=== PATIENT | female | born 1945 | race Caucasian/White ===

== ENCOUNTER 2019-02-25 20:56 | Inpatient (IN) | payer MEDICARE ==
[~2019-02-25] VITALS: Ht 165.1 cm; Wt 94.4 kg
[~2019-02-25 20:56] MED LIST: NKHM
[2019-02-25 20:57] VITALS: BP 147/81
[2019-02-25 21:54] LABS: BASO # 0.1 10*3/uL (0.0-0.1); BASO % 0.3 % (0.0-1.0); EOS # 0.1 10*3/uL (0.0-0.4); EOS % 0.3 % (1.0-4.0); HEMATOCRIT 41.2 % (37.0-47.0); HEMOGLOBIN 11.9 g/dl (12.0-16.0); LYMPH # 1.1 10*3/uL (1.3-4.4); LYMPH % 7.3 % (27.0-41.0); MEAN CELL VOLUME 77.4 fl (81.0-99.0); MEAN CORPUSCULAR HGB 22.4 pg (27.0-31.0); MEAN CORPUSCULAR HGB CONC 28.9 g/dl (33.0-37.0); MEAN PLATELET VOLUME 12.3 fl (9.6-12.3); MONO # 0.9 10*3/uL (0.1-1.0); MONO % 6.1 % (3.0-9.0); NEUT # 13.1 10*3/uL (2.3-7.9); NEUT % 85.6 % (47.0-73.0); PLATELET COUNT AUTOMATED 293 10*3/uL (130-400); RED BLOOD COUNT 5.32 10*6/uL (4.10-5.10); RED CELL DISTRI WIDTH 18.9 % (0-14.5); WHITE BLOOD COUNT 15.3 10*3/uL (4.8-10.8)
[2019-02-25 22:09] LABS: ALBUMIN 3.2 gm/dl (3.1-4.5); ALKALINE PHOSPHATASE 103 U/L (45-117); BUN 21 mg/dl (7-24); CHLORIDE 114 mmol/L (98-107); CREATININE 1.05 mg/dL (0.55-1.02); LIPASE 133 U/L (73-393); POTASSIUM 3.8 mmol/L (3.5-5.1); SGOT/AST 52 IU/L (3-35); SGPT/ALT 74 U/L (12-78); SODIUM 144 mmol/L (136-145); TOTAL PROTEIN 7.9 gm/dL (6.4-8.2)
--- NOTE | 2019-02-26 04:13 | NUR ---
RESTING QUIETLY NO SIGN OF DISTRESS. RESP EASY AND NONLABORE DON ROOM AIR. CALL LIGHT IN REACH.
[2019-02-26 05:34] LABS: BASO % 0.2 % (0.0-1.0); HEMATOCRIT 40.8 % (37.0-47.0); HEMOGLOBIN 11.7 g/dl (12.0-16.0); LYMPH # 1.1 10*3/uL (1.3-4.4); LYMPH % 6.4 % (27.0-41.0); MEAN CELL VOLUME 77.7 fl (81.0-99.0); MEAN CORPUSCULAR HGB 22.3 pg (27.0-31.0); MEAN CORPUSCULAR HGB CONC 28.7 g/dl (33.0-37.0); MEAN PLATELET VOLUME 11.8 fl (9.6-12.3); MONO # 1.5 10*3/uL (0.1-1.0); MONO % 8.6 % (3.0-9.0); NEUT # 14.3 10*3/uL (2.3-7.9); NEUT % 84.3 % (47.0-73.0); PLATELET COUNT AUTOMATED 261 10*3/uL (130-400); RED BLOOD COUNT 5.25 10*6/uL (4.10-5.10); RED CELL DISTRI WIDTH 18.8 % (0-14.5); WHITE BLOOD COUNT 16.9 10*3/uL (4.8-10.8)
[2019-02-26 05:50] LABS: ALBUMIN 3.1 gm/dl (3.1-4.5); CREATININE 1.4 mg/dL (0.55-1.02); PHOSPHOROUS 4.8 mg/dL (2.5-4.9); POTASSIUM 4.4 mmol/L (3.5-5.1); TOTAL PROTEIN 7.5 gm/dL (6.4-8.2)
[2019-02-26 05:55] LABS: THYROID STIM HORMONE (HS) 1.02 uIU/ml (0.358-4.75)
--- NOTE | 2019-02-26 06:25 | NUR ---
DR HUSSEIN. AWARE OF CONSULT. CALL HIM WITH ULTRA SOUND RESULTS.
--- NOTE | 2019-02-26 06:35 | NUR ---
PER DR CHAPMAN PT TO BE NPO.
--- NOTE | 2019-02-26 07:11 | NUR ---
REPORT FROM QING RIVERA AT THIS TIME.
[2019-02-26 07:36] LABS: VITAMIN D, 25-HYDROXY 14.9 ng/mL (30-100)
[2019-02-26 08:15] VITALS: BP 149/85
--- NOTE | 2019-02-26 08:35 | NUR ---
PATIENT LAYING IN BED AT THIS TIME APPEARS IN NO DISTRESS.
--- NOTE | 2019-02-26 08:37 | NUR ---
PATIENT HAS NO COMPLAINTS OF PAIN. LAYING ON SIDE. OFFERED BLANKET AND ASKED TO GET VITALS ON PATIENT. VITALS OBTAINED. ZOSYN TO BE HUNG AND HAS NOT BEEN SENT BY PHARMACY YET.
--- NOTE | 2019-02-26 09:20 | NUR ---
ATTEMPTED TO HAVE ART HISTORY INSTRUCTOR IN MY SECTION TO HANG ZOSYN AT THIS TIME STATES THAT IT IS GREYED OUT IN THE [facility]. PHARMACY HAS BEEN CALLED FOR MEDICAITON TO BE SENT TO THE ER TO BE HUNG.
--- NOTE | 2019-02-26 09:52 | NUR ---
PATIENT FAMILY MEMBER AT DESK SHOUTING AT NURSING STAFF. STATES THAT SHE HAS BEEN HERE SINCE YESTERDAY. STATES THAT SHE ASKED LAST NIGHT IF SHE WAS GOING TO BE ADMITTED AND SHE IS NOTED ADMITTED. STATED TO PATIENT FAMILY MEMBER THAT SHE IS STILL RECEIVING THE SAME CARE BEING ADMITTED AND SHE SAID THAT SHE NEEDS A DIFFERENT BED. RAINA NURSING COMMERCIAL CRABBER HAS BEEN MADE AWARE.
--- NOTE | 2019-02-26 10:21 | NUR ---
PATIENT FAMILY MEMBER AND PATIENT ARE IN ROOM AT THIS TIME ARUGING BACK AND FORTH. PATIENT STATES THAT SHE IS DEMANDING TO SEE A DOCTOR. WANTS TO LEAVE, STATES SHE HAS BEEN IN PAIN BUT HAS NOT NOTIFIED THIS NURSE OF HER PAIN. PATIENT STATES THAT SHE IS TIRED OF LAYING IN THIS BED. PATIENT ADVISED THAT THE NURSING REEFER TRUCK DRIVER HAS BEEN NOTIFIED. THEY SPEAK SAYING " YEAH AND WHEN IS THAT GOING TO COME". PATIENT STATES THAT SHE HAS NOT SEEN A DOCTOR SINCE LAST NIGHT. DR PAULA IS ON THE DEPARTMENT STATED TO HIM SHE WANTS TO SEE HIM. PATIENT STATES THAT "WE DONT CARE" STATES "THEY HAVE HAD PROBLEMS HERE BEFORE WITH HER ". BED HAS BEEN BROUGHT DOWN FROM UPSTAIRS. AIDE HERE AT THIS TIME ATTEMPTED TO GET PATIENT INTO THE BED. PATIENT REFUSED NOW.
--- NOTE | 2019-02-26 10:30 | NUR ---
IV SITE TO RIGHT UPPER ARM IS INFILTRATED. IT HAS BEEN D'CD. A NEW ONE ESTABLISHED IN THE RIGHT HAND. IV FLUID AND ZOSYN HAVE BEEN STARTED. PT HAS BEEN PLACED IN A HOSPITAL BED FOR COMFORT. AMANDA RIVERA
--- NOTE | 2019-02-26 11:29 | NUR ---
VISITOR AT BEDSIDE COMPLAINING OF UNSATISFIED CARE REGARDING PT HAS NOT BEEN PLACED INTO A BED UPSTAIRS, PAIN MEDICATION HAS BEEN DELATED. PT BEING MEDICATED NOW WITH DILAUDID, WHEN ASKED WHERE PT HAVING PAIN SHE STATES "NONE RIGHT NOW. BUT WHEN IT DOES THE LOWER LEFT BELLY".
--- NOTE | 2019-02-26 11:31 | NUR ---
PATIENT TAKEN TO FLOOR AT THIS TIME BY THIS NURSE AND ADELFO SCOTT. NO CHANGE IN PATIENT STATUS AT THIS TIME. TATIANA RIVERA BEDSIDE REPORT GIVEN.
--- NOTE | 2019-02-26 11:50 | NUR ---
Time: 115 A 73 year old F admitted to 5E under services of GUILLERMO ELLSWORTH DO. Pt. arrived via bed from ER. Chief complaint: ABDOMINAL PAIN. TATIANA SHRESTHA
[2019-02-26 12:00] VITALS: BP 133/60
--- NOTE | 2019-02-26 16:04 | NUR ---
DR. HUSSEIN IS AWARE OF ULTRASOUND RESULTS, NO NEW ORDERS AT THIS TIME
--- NOTE | 2019-02-26 17:25 | NUR ---
PT URINATED 100CC, DARK YELLOW URINE. URINE SENT. BLADDER SCAN FOR 25CC.
[2019-02-26 17:41] LABS: BILIRUBIN NEGATIVE (NEGATIVE); BLOOD 1+ (NEGATIVE); CLARITY SL CLOUDY (CLEAR); COLOR YELLOW (YELLOW); GLUCOSE NEGATIVE (NEGATIVE); KETONE NEGATIVE (NEGATIVE); LEUKO ESTERASE NEGATIVE (NEGATIVE); NITRITE NEGATIVE (NEGATIVE); PH 5.5 (5.0-9.0); SPECIFIC GRAVITY >= 1.030 (1.005-1.030); UROBILINOGEN 0.2 E.U./dl (0.2-1.0)
[2019-02-26 17:47] LABS: BACTERIA 4+; WBC 31-40 wbc/hpf (0-5)
[2019-02-26] MEDS ORDERED: HAWTHORN150 MG PO (19:37)
[2019-02-26] MEDS ORDERED: CO Q-1010 M2 PO (19:37)
[2019-02-26 20:00] VITALS: BP 145/69
--- NOTE | 2019-02-26 20:24 | NUR ---
PATIENT RESTING IN BED WITH EYES CLOSED. ARROUSES EASILY. BED IN LOWEST POSITION, CALL LIGHT IN REACH
--- NOTE | 2019-02-26 21:35 | NUR ---
MEDICATED WITH PRN DILAUDID FOR C/O PAIN IN ABD. WILL MONITOR
--- NOTE | 2019-02-26 22:35 | NUR ---
MEDICATION EFFECTIVE PER PATIENT
[2019-02-26 22:58] LABS: CREATININE 1.93 mg/dL (0.55-1.02); POTASSIUM 4.6 mmol/L (3.5-5.1)
--- NOTE | 2019-02-26 23:51 | NUR ---
UPON ENTERING ROOM PATIENT IS CONFUSED TO TIME. ANY WORDS THAT SHE CAN SPEAK IS GARBLED. PATIENT STATES "I AM CONFUSED AND I DO NOT KNOW WHY". PATIENT DENIES ANY PAIN AT THIS TIME. DR HOOKS NOTIFIED
[2019-02-27] VITALS (8 sets, daily range): BP systolic 122–152; BP diastolic 56–100
--- NOTE | 2019-02-27 00:10 | NUR ---
PATIENT REMAINS CONFUSED TO TIME. STATES IT IS 2009. SPEECH MORE CLEAR AT THIS TIME. CONTINUES TO DENY PAIN OR SHORTNESS OF BREATH, LUNGS CLEAR IN ALL OW[place]
--- NOTE | 2019-02-27 00:13 | NUR ---
DR HOOKS AT BEDSIDE
--- NOTE | 2019-02-27 00:22 | NUR ---
FLUIDS STOPPED AT THIS TIME
[2019-02-27 00:25] LABS: ABG BASE EXCESS -3.3 mmol/L (-2.0-2.0); ARTERIAL BLOOD GAS PH 7.393 (7.35-7.45)
--- NOTE | 2019-02-27 00:43 | NUR ---
ONE TIME LASIX GIVEN IV PER ORDER. BIPAP INTACT AT THIS TIME. PATIENT TOLERATING WELL.
--- NOTE | 2019-02-27 01:09 | NUR ---
DR. HOOKS AWARE OF TROPONIN OF 17.1.
--- NOTE | 2019-02-27 01:14 | NUR ---
DR HOOKS AWARE OF CRITICAL TROPONIN.
--- NOTE | 2019-02-27 01:22 | NUR ---
ATTEMPTED TO CALL 5 TIMES TO UPDATE HIM ON PATIENT'S CONDITION. NO ANSWER
--- NOTE | 2019-02-27 01:26 | NUR ---
#16 TORIBIO CATH INSERTED AT THIS TIME PER ORDER. PATIENT TOLERARED WELL 400ML RESIDUAL URINE OBTAINED. CALL LIGHT IS WITHIN REACH.
--- NOTE | 2019-02-27 01:29 | NUR ---
DR HOOKS AWARE OF PATIENT'S LACTIC ACID
--- NOTE | 2019-02-27 01:39 | NUR ---
APSIRIN GIVEN PER ORDER. BIPAP REMAINS INTACT. PATIENT DENIES CHEST PAIN AT THIS TIME
--- NOTE | 2019-02-27 02:05 | NUR ---
RAILROAD CONSTRUCTION DIRECTOR RILEY SPOKE WITH PATIENT'S AT THIS TIME. AWARE OF PATIENT CONDITION
--- NOTE | 2019-02-27 03:14 | NUR ---
DR OHOKS AWARE OF CRITICAL TROPONIN
--- NOTE | 2019-02-27 03:23 | NUR ---
PATIENT SITTING UP IN BED WITH BIPAP INTACT. HYDRALAZINE GIVEN PER ORDER. IV HEPARIN INFUSING WITHOUT DIFFICULTY. PATIENT ALERT AND ORIENTED. BEING RUDE AND DISRESPECTFUL TO THIS RN. BED ALARM ON, CALL LIGHT IN REACH
--- NOTE | 2019-02-27 03:29 | NUR ---
FAMILY AT BEDSIDE
--- NOTE | 2019-02-27 03:40 | NUR ---
PATIENT ATTEMPTING TO TAKE BIPAP MASK OFF. STATES SHE IS GOING TO TAKE HER TORIBIO OUT. STARTED TO EDUCATE THE PATIENT ON THE IMPORTANCE OF LEAVING THE BIPAP ON. PATIENT INTERUPTED THIS RN AND STATED "STOP. 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 PAIENT BEING RUDE AND DISRESPECTFUL TO DESIREE WEST AND THIS RN. PATIENT'S REQUESTING TO SPEAK WITH DOCTOR. DR HOOKS MADE AWARE
--- NOTE | 2019-02-27 04:10 | NUR ---
24 HR chart check completed.
--- NOTE | 2019-02-27 04:45 | NUR ---
PATIENT TRANSFERRED TO ICCU-6 WITH THIS RN AND RESPIRATORY. ALL BELONGINGS SENT. REPORT GIVEN TO NIKITA RIVERA.
--- NOTE | 2019-02-27 04:46 | NUR ---
PATIENT TRANSFERRED FROM THE 5TH FLOOR TO ICU AT THIS TIME. RESPIRATORY AND RN AT BEDSIDE. VITAL SINGS TAKEN AT THIS TIME. BELONGINGS WITH PATIENT. PATIENT DISPLAYS NO SIGNS OR SYMPTOMS OF DISTRESS AT THIS TIME.
--- NOTE | 2019-02-27 04:58 | NUR ---
PATIENT WEIGHT UPDATED AT THIS TIME. PATIENT WEIGHS 208.3
--- NOTE | 2019-02-27 06:04 | NUR ---
PATIENT AND PATIENTS ARE TELLING OTHER FAMILY MEMBERS THINGS THAT ARE NOT TRUE. THEY ASKED IF WE HAD A BED YET I TOLD THEM AT THIS TIME WE DID NOT. AND THAT AFTER CHANGE OF SHIFT THAT IF THEY HAVE NOT HEARD ANYTHING THEY MIGHT CONSIDER SENDING HER SOMEWHERE ELSE
--- NOTE | 2019-02-27 06:16 | NUR ---
PATIENT AND PATIENT GETTING AGITATED WANTING TO KNOW WHY NTHE PATIENT HAS NOT BEEN SENT TO [facility] I EXPLAINED ITS BECUASE THEY HAVE NO BEDS AVAILABLE. PATIENT HAS BEEN RUDE CALLING ME STUPID HAS MADE DEMANDS AND ORDERING STAFF TO DO THINGS. I ASKED OBSTETRICAL NURSE TO CALL [facility] AGAIN WHO THEY WILL HAVE A BED FOR HER AFTER SHIFT CHANGE.
[2019-02-27 06:19] LABS: HEMATOCRIT 39.3 % (37.0-47.0); HEMOGLOBIN 11.5 g/dl (12.0-16.0); MEAN CELL VOLUME 77.2 fl (81.0-99.0); MEAN CORPUSCULAR HGB 22.6 pg (27.0-31.0); MEAN CORPUSCULAR HGB CONC 29.3 g/dl (33.0-37.0); MEAN PLATELET VOLUME 12.6 fl (9.6-12.3); PLATELET COUNT AUTOMATED 212 10*3/uL (130-400); RED BLOOD COUNT 5.09 10*6/uL (4.10-5.10); RED CELL DISTRI WIDTH 18.6 % (0-14.5); WHITE BLOOD COUNT 32.7 10*3/uL (4.8-10.8)
[2019-02-27 06:48] LABS: ALBUMIN 2.8 gm/dl (3.1-4.5); CREATININE 2.17 mg/dL (0.55-1.02); POTASSIUM 4.3 mmol/L (3.5-5.1)
[2019-02-27 06:50] LABS: TOTAL PROTEIN 7.2 gm/dL (6.4-8.2)
[2019-02-27 07:06] LABS: INTERNATIONAL NORM RATIO 1.3 (2.0-3.5)
[2019-02-27 07:43] LABS: MICROCYTOSIS SLIGHT; OVALOCYTES MODERATE; PLATELET SUFFICIENCY NORMAL (NORMAL); POLYCHROMASIA SLIGHT; TOTAL CELLS COUNTED 100 #CELLS
--- NOTE | 2019-02-27 08:45 | NUR ---
DISCHARGED TO [facility]IA [facility]. REPORT CALLED TO MIGUEL.
== END 2019-02-27 08:44 | disposition short-term general hospital (02) | DRG 280 ==
LOC: ED 20:56 → EDHOLD 02-26 01:06 → 5E 02-26 11:16 → ICCU 02-27 04:25
PROVIDERS: Internal Medicine; Nurse Practitioner Family; Surgery; ADMIT Emergency Medicine
DX: I21.A9 Other myocardial infarction type (principal); N17.0 Acute kidney failure with tubular necrosis; K80.00 Calculus of gallbladder with acute cholecystitis without obstruction; I50.1 Left ventricular failure, unspecified; I50.9 Heart failure, unspecified; K57.90 Diverticulosis of intestine, part unspecified, without perforation or abscess without bleeding; R74.0 Nonspecific elevation of levels of transaminase and lactic acid dehydrogenase [LDH]; D72.825 Bandemia; E83.41 Hypermagnesemia; R09.02 Hypoxemia; E87.8 Other disorders of electrolyte and fluid balance, not elsewhere classified; Z98.891 History of uterine scar from previous surgery; Z98.51 Tubal ligation status; Z86.73 Personal history of transient ischemic attack (TIA), and cerebral infarction without residual deficits; Z82.5 Family history of asthma and other chronic lower respiratory diseases; Z80.3 Family history of malignant neoplasm of breast

== ENCOUNTER 2019-04-04 16:21 | Inpatient (IN) | payer MEDICARE ==
[~2019-04-04] VITALS: Ht 162.5 cm; Wt 77.8 kg
[~2019-04-04 16:21] MED LIST changes: -BUMETANIDE1 MG PO; -CARVEDILOL6.25 MG PO; -COREG3.125 MG PO; -COUMADIN2 M1 PO; -Carafate1 GM/10 ML PO; -HYDRALAZINE HYD50 MG PO; -ISOSORBIDE30 MG PO; -Isordil20 MG PO; -JANTOVEN4 M1 PO; -LIDODERM1 EACH T; -LISINOPRIL5 MG PO; -METOCLOPRAMIDE H5 M1 PO; -PROTONIX40 MG PO
[2019-04-04 16:25] VITALS: BP 113/58
[2019-04-04 16:51] VITALS: BP 108/62
[2019-04-04 17:12] LABS: BASO % 0.4 % (0.0-1.0); EOS # 0.2 10*3/uL (0.0-0.4); EOS % 2.7 % (1.0-4.0); HEMATOCRIT 39.7 % (37.0-47.0); HEMOGLOBIN 11.6 g/dl (12.0-16.0); LYMPH # 1.7 10*3/uL (1.3-4.4); LYMPH % 21.3 % (27.0-41.0); MEAN CELL VOLUME 77.4 fl (81.0-99.0); MEAN CORPUSCULAR HGB 22.6 pg (27.0-31.0); MEAN CORPUSCULAR HGB CONC 29.2 g/dl (33.0-37.0); MEAN PLATELET VOLUME 11.4 fl (9.6-12.3); MONO # 0.8 10*3/uL (0.1-1.0); MONO % 10.2 % (3.0-9.0); NEUT # 5.3 10*3/uL (2.3-7.9); NEUT % 65.2 % (47.0-73.0); PLATELET COUNT AUTOMATED 251 10*3/uL (130-400); RED BLOOD COUNT 5.13 10*6/uL (4.10-5.10); RED CELL DISTRI WIDTH 19.6 % (0-14.5); WHITE BLOOD COUNT 8.1 10*3/uL (4.8-10.8)
[2019-04-04 17:29] LABS: ALBUMIN 3.5 gm/dl (3.1-4.5); CREATININE 1.98 mg/dL (0.55-1.02); POTASSIUM 4.1 mmol/L (3.5-5.1); TOTAL PROTEIN 8.1 gm/dL (6.4-8.2); TROPONIN I 0.016 ng/ml (<0.045)
[2019-04-04 17:32] LABS: INTERNATIONAL NORM RATIO 4.6 (2.0-3.5)
[2019-04-04 19:53] LABS: BILIRUBIN NEGATIVE (NEGATIVE); BLOOD NEGATIVE (NEGATIVE); CLARITY CLEAR (CLEAR); COLOR YELLOW (YELLOW); GLUCOSE NEGATIVE (NEGATIVE); KETONE NEGATIVE (NEGATIVE); LEUKO ESTERASE 2+ (NEGATIVE); NITRITE NEGATIVE (NEGATIVE); SPECIFIC GRAVITY 1.025 (1.005-1.030); UROBILINOGEN 0.2 E.U./dl (0.2-1.0)
[2019-04-04 19:59] LABS: WBC 16-20 wbc/hpf (0-5)
[2019-04-04 20:00] LABS: BACTERIA 2+; RBC 0-2 rbc/hpf (0-2)
[2019-04-04 20:06] VITALS: BP 105/44
[2019-04-04] MEDS ORDERED: BUMETANIDE1 MG PO (20:37)
[2019-04-04] MEDS ORDERED: LISINOPRIL5 MG PO (20:37)
[2019-04-04] MEDS ORDERED: JANTOVEN4 M1 PO (20:38)
[2019-04-04] MEDS ORDERED: COREG3.125 MG PO (20:38)
[2019-04-04] MEDS ORDERED: ISOSORBIDE30 MG PO (20:38)
[2019-04-04] MEDS ORDERED: LIDODERM1 EACH T (20:39)
[2019-04-05] VITALS: BP 109/59
[2019-04-05 06:42] LABS: BASO % 0.3 % (0.0-1.0); EOS # 0.2 10*3/uL (0.0-0.4); EOS % 3.9 % (1.0-4.0); HEMATOCRIT 35.4 % (37.0-47.0); HEMOGLOBIN 10.3 g/dl (12.0-16.0); LYMPH # 1.1 10*3/uL (1.3-4.4); LYMPH % 18.3 % (27.0-41.0); MEAN CELL VOLUME 77.6 fl (81.0-99.0); MEAN CORPUSCULAR HGB 22.6 pg (27.0-31.0); MEAN CORPUSCULAR HGB CONC 29.1 g/dl (33.0-37.0); MEAN PLATELET VOLUME 10.9 fl (9.6-12.3); MONO # 0.6 10*3/uL (0.1-1.0); MONO % 10.5 % (3.0-9.0); NEUT # 3.9 10*3/uL (2.3-7.9); NEUT % 66.7 % (47.0-73.0); PLATELET COUNT AUTOMATED 198 10*3/uL (130-400); RED BLOOD COUNT 4.56 10*6/uL (4.10-5.10); RED CELL DISTRI WIDTH 19.2 % (0-14.5); WHITE BLOOD COUNT 5.9 10*3/uL (4.8-10.8)
[2019-04-05 07:13] LABS: INTERNATIONAL NORM RATIO 3.7 (2.0-3.5)
[2019-04-05 07:15] LABS: ALBUMIN 2.9 gm/dl (3.1-4.5); CREATININE 1.67 mg/dL (0.55-1.02); PHOSPHOROUS 3.2 mg/dL (2.5-4.9); POTASSIUM 3.5 mmol/L (3.5-5.1); TOTAL PROTEIN 6.8 gm/dL (6.4-8.2)
[2019-04-05 08:00] VITALS: BP 143/50
[2019-04-05 12:00] VITALS: BP 115/57
[2019-04-05 16:00] VITALS: BP 122/64
[2019-04-05 20:00] VITALS: BP 133/47; BP 92/40
[2019-04-06] VITALS (11 sets, daily range): BP systolic 111–142; BP diastolic 40–62
[2019-04-06 06:20] LABS: BASO % 0.4 % (0.0-1.0); EOS # 0.2 10*3/uL (0.0-0.4); EOS % 3.1 % (1.0-4.0); HEMOGLOBIN 10.2 g/dl (12.0-16.0); LYMPH # 1.1 10*3/uL (1.3-4.4); LYMPH % 20.4 % (27.0-41.0); MEAN CELL VOLUME 77.3 fl (81.0-99.0); MEAN CORPUSCULAR HGB 22.5 pg (27.0-31.0); MEAN CORPUSCULAR HGB CONC 29.1 g/dl (33.0-37.0); MEAN PLATELET VOLUME 11.1 fl (9.6-12.3); MONO # 0.6 10*3/uL (0.1-1.0); MONO % 11.1 % (3.0-9.0); NEUT # 3.3 10*3/uL (2.3-7.9); NEUT % 64.6 % (47.0-73.0); PLATELET COUNT AUTOMATED 199 10*3/uL (130-400); RED BLOOD COUNT 4.53 10*6/uL (4.10-5.10); RED CELL DISTRI WIDTH 18.7 % (0-14.5); WHITE BLOOD COUNT 5.1 10*3/uL (4.8-10.8)
[2019-04-06 06:29] LABS: CREATININE 1.52 mg/dL (0.55-1.02); POTASSIUM 4.2 mmol/L (3.5-5.1)
[2019-04-06 06:44] LABS: INTERNATIONAL NORM RATIO 1.5 (2.0-3.5)
[2019-04-07] VITALS: BP 132/49
[2019-04-07 06:23] LABS: BASO % 0.4 % (0.0-1.0); EOS # 0.2 10*3/uL (0.0-0.4); EOS % 2.4 % (1.0-4.0); HEMATOCRIT 34.8 % (37.0-47.0); HEMOGLOBIN 10.5 g/dl (12.0-16.0); LYMPH # 1.1 10*3/uL (1.3-4.4); LYMPH % 14.9 % (27.0-41.0); MEAN CORPUSCULAR HGB 22.9 pg (27.0-31.0); MEAN CORPUSCULAR HGB CONC 30.2 g/dl (33.0-37.0); MEAN PLATELET VOLUME 10.8 fl (9.6-12.3); MONO # 0.7 10*3/uL (0.1-1.0); MONO % 9.4 % (3.0-9.0); NEUT # 5.1 10*3/uL (2.3-7.9); NEUT % 72.6 % (47.0-73.0); PLATELET COUNT AUTOMATED 191 10*3/uL (130-400); RED BLOOD COUNT 4.58 10*6/uL (4.10-5.10); RED CELL DISTRI WIDTH 18.8 % (0-14.5)
[2019-04-07 06:48] LABS: ALBUMIN 2.5 gm/dl (3.1-4.5); CREATININE 1.36 mg/dL (0.55-1.02); TOTAL PROTEIN 6.1 gm/dL (6.4-8.2)
[2019-04-07 06:52] LABS: INTERNATIONAL NORM RATIO 1.1 (2.0-3.5)
[2019-04-07 08:00] VITALS: BP 105/91
[2019-04-07 12:00] VITALS: BP 119/59
[2019-04-07 16:00] VITALS: BP 132/58
[2019-04-07 20:00] VITALS: BP 117/45
[2019-04-08] VITALS: BP 114/49
[2019-04-08 05:59] LABS: CREATININE 1.23 mg/dL (0.55-1.02); POTASSIUM 4.1 mmol/L (3.5-5.1)
[2019-04-08 06:52] LABS: INTERNATIONAL NORM RATIO 1.1 (2.0-3.5)
[2019-04-08 08:00] VITALS: BP 157/61
[2019-04-08 10:23] LABS: ALBUMIN 2.6 gm/dl (3.1-4.5); CREATININE 1.27 mg/dL (0.55-1.02); TOTAL PROTEIN 6.5 gm/dL (6.4-8.2)
[2019-04-08 12:00] VITALS: BP 149/53
[2019-04-08 16:00] VITALS: BP 101/48
[2019-04-08 20:00] VITALS: BP 128/62
[2019-04-08 23:57] VITALS: BP 98/50
[2019-04-09 07:26] LABS: INTERNATIONAL NORM RATIO 1.4 (2.0-3.5)
[2019-04-09 08:00] VITALS: BP 106/48
[2019-04-09 12:00] VITALS: BP 142/67
[2019-04-09 16:00] VITALS: BP 92/44
[2019-04-09 20:00] VITALS: BP 110/58
[2019-04-10] VITALS: BP 104/38
[2019-04-10 06:00] VITALS: BP 110/50
[2019-04-10 07:47] LABS: BASO % 0.1 % (0.0-1.0); EOS # 0.1 10*3/uL (0.0-0.4); HEMATOCRIT 32.6 % (37.0-47.0); HEMOGLOBIN 9.9 g/dl (12.0-16.0); LYMPH # 1.1 10*3/uL (1.3-4.4); LYMPH % 15.9 % (27.0-41.0); MEAN CELL VOLUME 75.1 fl (81.0-99.0); MEAN CORPUSCULAR HGB 22.8 pg (27.0-31.0); MEAN CORPUSCULAR HGB CONC 30.4 g/dl (33.0-37.0); MEAN PLATELET VOLUME 11.2 fl (9.6-12.3); MONO # 0.8 10*3/uL (0.1-1.0); MONO % 11.7 % (3.0-9.0); NEUT # 4.9 10*3/uL (2.3-7.9); PLATELET COUNT AUTOMATED 206 10*3/uL (130-400); RED BLOOD COUNT 4.34 10*6/uL (4.10-5.10); RED CELL DISTRI WIDTH 19.9 % (0-14.5); WHITE BLOOD COUNT 6.9 10*3/uL (4.8-10.8)
[2019-04-10 08:00] VITALS: BP 134/66
[2019-04-10 08:04] LABS: CREATININE 1.3 mg/dL (0.55-1.02); POTASSIUM 3.9 mmol/L (3.5-5.1)
[2019-04-10] MEDS ORDERED: CARVEDILOL6.25 MG PO (09:06)
[2019-04-10] MEDS ORDERED: HYDRALAZINE HYD50 MG PO (09:06)
[2019-04-10] MEDS ORDERED: COUMADIN2 M1 PO (09:06)
[2019-04-10] MEDS ORDERED: METOCLOPRAMIDE H5 M1 PO (09:06)
[2019-04-10] MEDS ORDERED: Carafate1 GM/10 ML PO (09:06)
[2019-04-10] MEDS ORDERED: Isordil20 MG PO (09:06)
[2019-04-10] MEDS ORDERED: PROTONIX40 MG PO (09:06)
[2019-04-10 12:00] VITALS: BP 100/52
== END 2019-04-10 14:57 | disposition home or self-care (01) | DRG 640 ==
LOC: ED 16:21 → EDHOLD 19:36 → 5E 19:36
PROVIDERS: Internal Medicine; Internal Medicine Gastroenterology; Nurse Practitioner Family; Student in an Organized Health Care Education/Training Program; ADMIT Internal Medicine
PROC: 0DB78ZX Excision of Stomach, Pylorus, Via Natural or Artificial Opening Endoscopic, Diagnostic (ICD-10-PCS; principal; 2019-04-06)
DX: E86.0 Dehydration (principal); N17.0 Acute kidney failure with tubular necrosis; I50.22 Chronic systolic (congestive) heart failure; I42.8 Other cardiomyopathies; K29.70 Gastritis, unspecified, without bleeding; R53.1 Weakness; R74.8 Abnormal levels of other serum enzymes; D50.9 Iron deficiency anemia, unspecified; N18.3 Chronic kidney disease, stage 3 (moderate); I25.10 Atherosclerotic heart disease of native coronary artery without angina pectoris; K57.90 Diverticulosis of intestine, part unspecified, without perforation or abscess without bleeding; R10.13 Epigastric pain; E87.8 Other disorders of electrolyte and fluid balance, not elsewhere classified; E83.41 Hypermagnesemia; R82.71 Bacteriuria; R41.0 Disorientation, unspecified; I48.91 Unspecified atrial fibrillation; I44.7 Left bundle-branch block, unspecified; T45.515A Adverse effect of anticoagulants, initial encounter; Y92.89 Other specified places as the place of occurrence of the external cause; I25.2 Old myocardial infarction; Z98.51 Tubal ligation status; Z82.5 Family history of asthma and other chronic lower respiratory diseases; Z80.3 Family history of malignant neoplasm of breast; Z86.73 Personal history of transient ischemic attack (TIA), and cerebral infarction without residual deficits; Z79.899 Other long term (current) drug therapy; Z79.01 Long term (current) use of anticoagulants; Z91.19 Patient's noncompliance with other medical treatment and regimen

== ENCOUNTER → 2019-04-04 | Outpatient (CLI) | payer SELFPAY ==
[~2019-04-04] MED LIST changes: +BUMETANIDE1 MG PO; +CARVEDILOL6.25 MG PO; +CO Q-1010 M2 PO; +COREG3.125 MG PO; +COUMADIN2 M1 PO; +Carafate1 GM/10 ML PO; +HAWTHORN150 MG PO; +HYDRALAZINE HYD50 MG PO; +ISOSORBIDE30 MG PO; +Isordil20 MG PO; +JANTOVEN4 M1 PO; +LIDODERM1 EACH T; +LISINOPRIL5 MG PO; +METOCLOPRAMIDE H5 M1 PO; +PROTONIX40 MG PO
== END | disposition home or self-care (01) ==
LOC: RESCLI 09:59
DX: I95.0 Idiopathic hypotension (principal); E86.0 Dehydration; I48.91 Unspecified atrial fibrillation; K30 Functional dyspepsia; R11.0 Nausea; R53.82 Chronic fatigue, unspecified; R63.4 Abnormal weight loss; R42 Dizziness and giddiness

== ENCOUNTER 2019-04-11 10:54 | Emergency (ER) | payer MEDICARE ==
[~2019-04-11] VITALS: Ht 162.5 cm; Wt 77.6 kg
[~2019-04-11 10:54] MED LIST changes: +BUMETANIDE1 MG PO; +CARVEDILOL6.25 MG PO; +COREG3.125 MG PO; +COUMADIN2 M1 PO; +Carafate1 GM/10 ML PO; +HYDRALAZINE HYD50 MG PO; +ISOSORBIDE30 MG PO; +Isordil20 MG PO; +JANTOVEN4 M1 PO; +LIDODERM1 EACH T; +LISINOPRIL5 MG PO; +METOCLOPRAMIDE H5 M1 PO; +PROTONIX40 MG PO
[2019-04-11 11:49] LABS: BASO % 0.2 % (0.0-1.0); EOS # 0.1 10*3/uL (0.0-0.4); EOS % 0.9 % (1.0-4.0); HEMATOCRIT 35.4 % (37.0-47.0); HEMOGLOBIN 10.6 g/dl (12.0-16.0); LYMPH # 1.3 10*3/uL (1.3-4.4); LYMPH % 14.6 % (27.0-41.0); MEAN CELL VOLUME 75.2 fl (81.0-99.0); MEAN CORPUSCULAR HGB 22.5 pg (27.0-31.0); MEAN CORPUSCULAR HGB CONC 29.9 g/dl (33.0-37.0); MEAN PLATELET VOLUME 11.4 fl (9.6-12.3); NEUT # 6.3 10*3/uL (2.3-7.9); NEUT % 72.8 % (47.0-73.0); PLATELET COUNT AUTOMATED 243 10*3/uL (130-400); RED BLOOD COUNT 4.71 10*6/uL (4.10-5.10); RED CELL DISTRI WIDTH 20.4 % (0-14.5); WHITE BLOOD COUNT 8.6 10*3/uL (4.8-10.8)
[2019-04-11 11:59] LABS: ACT PARTIAL THROMBO TIME 52.5 SECONDS (20.0-32.1); INTERNATIONAL NORM RATIO 3.9 (2.0-3.5)
[2019-04-11 12:06] LABS: ALBUMIN 2.7 gm/dl (3.1-4.5); CREATININE 1.35 mg/dL (0.55-1.02); POTASSIUM 3.6 mmol/L (3.5-5.1); TOTAL PROTEIN 7.2 gm/dL (6.4-8.2)
[2019-04-11 12:09] LABS: TROPONIN I 0.025 ng/ml (<0.045)
== END 2019-04-11 15:10 | disposition home or self-care (01) ==
LOC: ED 10:54
PROVIDERS: Emergency Medicine
DX: R55 Syncope and collapse (principal); R79.1 Abnormal coagulation profile; M79.602 Pain in left arm; I48.91 Unspecified atrial fibrillation; I25.2 Old myocardial infarction; N18.9 Chronic kidney disease, unspecified; I50.9 Heart failure, unspecified; Z79.899 Other long term (current) drug therapy; Z86.73 Personal history of transient ischemic attack (TIA), and cerebral infarction without residual deficits; Z98.61 Coronary angioplasty status

== ENCOUNTER 2019-04-12 12:36 | Emergency (ER) | payer SELFPAY ==
[~2019-04-12] VITALS: Ht 162.5 cm; Wt 77.6 kg
[2019-04-12 13:32] LABS: BASO % 0.2 % (0.0-1.0); EOS # 0.1 10*3/uL (0.0-0.4); EOS % 1.3 % (1.0-4.0); HEMATOCRIT 33.2 % (37.0-47.0); HEMOGLOBIN 9.9 g/dl (12.0-16.0); LYMPH # 1.3 10*3/uL (1.3-4.4); LYMPH % 15.6 % (27.0-41.0); MEAN CORPUSCULAR HGB CONC 29.8 g/dl (33.0-37.0); MEAN PLATELET VOLUME 11.4 fl (9.6-12.3); MONO # 1.1 10*3/uL (0.1-1.0); MONO % 12.7 % (3.0-9.0); NEUT % 69.7 % (47.0-73.0); PLATELET COUNT AUTOMATED 272 10*3/uL (130-400); RED BLOOD COUNT 4.31 10*6/uL (4.10-5.10); RED CELL DISTRI WIDTH 20.4 % (0-14.5); WHITE BLOOD COUNT 8.5 10*3/uL (4.8-10.8)
[2019-04-12 13:47] LABS: ALBUMIN 2.7 gm/dl (3.1-4.5); CREATININE 1.27 mg/dL (0.55-1.02); POTASSIUM 3.6 mmol/L (3.5-5.1); TOTAL PROTEIN 6.9 gm/dL (6.4-8.2)
[2019-04-12 13:51] LABS: INTERNATIONAL NORM RATIO 5.5 (2.0-3.5)
== END 2019-04-12 14:05 | disposition home or self-care (01) ==
LOC: ED 12:36
PROVIDERS: Nurse Practitioner Family
DX: R79.1 Abnormal coagulation profile (principal); I25.10 Atherosclerotic heart disease of native coronary artery without angina pectoris; I48.91 Unspecified atrial fibrillation; I50.9 Heart failure, unspecified; Z79.899 Other long term (current) drug therapy; Z86.73 Personal history of transient ischemic attack (TIA), and cerebral infarction without residual deficits

== ENCOUNTER → 2019-04-14 | Outpatient (CLI) | payer SELFPAY ==
[2019-04-14 16:17] LABS: CREATININE 1.21 mg/dL (0.55-1.02); POTASSIUM 3.8 mmol/L (3.5-5.1)
== END | disposition home or self-care (01) ==
LOC: LAB 15:30
PROVIDERS: Internal Medicine Cardiovascular Disease
DX: N28.9 Disorder of kidney and ureter, unspecified (principal)

== ENCOUNTER → 2019-04-21 | Outpatient (CLI) | payer SELFPAY | END | disposition home or self-care (01) | LOC: RESCLI 00:18 | DX: Z76.89 Persons encountering health services in other specified circumstances (principal); K30 Functional dyspepsia; I25.2 Old myocardial infarction; I11.0 Hypertensive heart disease with heart failure; I50.23 Acute on chronic systolic (congestive) heart failure; I48.0 Paroxysmal atrial fibrillation; I25.10 Atherosclerotic heart disease of native coronary artery without angina pectoris; M06.9 Rheumatoid arthritis, unspecified; R53.82 Chronic fatigue, unspecified; Z86.73 Personal history of transient ischemic attack (TIA), and cerebral infarction without residual deficits; Z79.899 Other long term (current) drug therapy ==

== ENCOUNTER → 2019-05-23 | Outpatient (CLI) | payer SELFPAY ==
[2019-05-23 12:46] LABS: POTASSIUM 3.9 mmol/L (3.5-5.1)
[2019-05-23 13:09] LABS: ALBUMIN 3.4 gm/dl (3.1-4.5); CREATININE 1.37 mg/dL (0.55-1.02); TOTAL PROTEIN 8.3 gm/dL (6.4-8.2)
[2019-05-23 13:28] LABS: VITAMIN D, 25-HYDROXY 11.3 ng/mL (30-100)
== END | disposition home or self-care (01) ==
LOC: LAB 11:49
PROVIDERS: Internal Medicine
DX: Z76.89 Persons encountering health services in other specified circumstances (principal); R53.82 Chronic fatigue, unspecified; I50.23 Acute on chronic systolic (congestive) heart failure; E55.9 Vitamin D deficiency, unspecified; I11.0 Hypertensive heart disease with heart failure

== ENCOUNTER → 2019-05-26 | Outpatient (CLI) | payer SELFPAY | END | disposition home or self-care (01) | LOC: RESCLI 01:19 | DX: I13.0 Hypertensive heart and chronic kidney disease with heart failure and stage 1 through stage 4 chronic kidney disease, or unspecified chronic kidney disease (principal); I50.23 Acute on chronic systolic (congestive) heart failure; N18.2 Chronic kidney disease, stage 2 (mild); R53.82 Chronic fatigue, unspecified; K30 Functional dyspepsia; I25.2 Old myocardial infarction; I48.0 Paroxysmal atrial fibrillation; I25.10 Atherosclerotic heart disease of native coronary artery without angina pectoris; M06.9 Rheumatoid arthritis, unspecified; M19.90 Unspecified osteoarthritis, unspecified site; Z79.899 Other long term (current) drug therapy; Z86.73 Personal history of transient ischemic attack (TIA), and cerebral infarction without residual deficits; Z76.89 Persons encountering health services in other specified circumstances ==

== ENCOUNTER → 2019-09-05 | Outpatient (CLI) | payer SELFPAY ==
[2019-09-05 11:46] LABS: CREATININE 1.69 mg/dL (0.55-1.02)
== END | disposition home or self-care (01) ==
LOC: LAB 10:56
PROVIDERS: Internal Medicine Cardiovascular Disease
DX: N28.9 Disorder of kidney and ureter, unspecified (principal)

== ENCOUNTER → 2019-09-14 | Outpatient (CLI) | payer SELFPAY | LOC: RESCLI 00:58 | DX: I50.23 Acute on chronic systolic (congestive) heart failure (principal); E55.9 Vitamin D deficiency, unspecified; D64.9 Anemia, unspecified; N18.3 Chronic kidney disease, stage 3 (moderate); N17.9 Acute kidney failure, unspecified; I48.91 Unspecified atrial fibrillation; M06.9 Rheumatoid arthritis, unspecified; Z98.51 Tubal ligation status; Z79.899 Other long term (current) drug therapy; Z98.890 Other specified postprocedural states ==

== ENCOUNTER → 2019-12-28 | Outpatient (CLI) | payer MEDICARE | END | disposition home or self-care (01) | LOC: RESCLI 00:37 | PROVIDERS: ATTEND Family Medicine | DX: I50.22 Chronic systolic (congestive) heart failure (principal); I48.20 Chronic atrial fibrillation, unspecified; D64.9 Anemia, unspecified; E55.9 Vitamin D deficiency, unspecified; Z79.899 Other long term (current) drug therapy; Z98.890 Other specified postprocedural states; Z88.8 Allergy status to other drugs, medicaments and biological substances ==

== ENCOUNTER → 2020-06-13 | Outpatient (CLI) | payer MEDICARE | END | disposition home or self-care (01) | LOC: RESCLI 00:38 | PROVIDERS: ATTEND Emergency Medicine | DX: I50.22 Chronic systolic (congestive) heart failure (principal); I48.20 Chronic atrial fibrillation, unspecified; E55.9 Vitamin D deficiency, unspecified; D64.9 Anemia, unspecified; Z79.899 Other long term (current) drug therapy; Z98.890 Other specified postprocedural states; Z88.8 Allergy status to other drugs, medicaments and biological substances ==

== ENCOUNTER → 2020-07-20 | Outpatient (CLI) | payer MEDICARE ==
[2020-07-20 11:02] LABS: BASO % 0.4 % (0.0-1.0); EOS # 0.2 10*3/uL (0.0-0.4); EOS % 2.5 % (1.0-4.0); HEMATOCRIT 36.8 % (37.0-47.0); LYMPH # 1.3 10*3/uL (1.3-4.4); LYMPH % 17.1 % (27.0-41.0); MEAN CELL VOLUME 80.2 fl (81.0-99.0); MEAN CORPUSCULAR HGB 24.8 pg (27.0-31.0); MEAN PLATELET VOLUME 10.3 fl (9.6-12.3); MONO # 0.7 10*3/uL (0.1-1.0); MONO % 9.2 % (3.0-9.0); NEUT # 5.5 10*3/uL (2.3-7.9); NEUT % 70.5 % (47.0-73.0); PLATELET COUNT AUTOMATED 276 10*3/uL (130-400); RED BLOOD COUNT 4.59 10*6/uL (4.10-5.10); RED CELL DISTRI WIDTH 16.2 % (0-14.5); WHITE BLOOD COUNT 7.7 10*3/uL (4.8-10.8)
[2020-07-20 11:18] LABS: ALBUMIN 3.4 gm/dl (3.1-4.5); CREATININE 1.32 mg/dL (0.55-1.02); POTASSIUM 4.2 mmol/L (3.5-5.1); TOTAL PROTEIN 8.2 gm/dL (6.4-8.2)
[2020-07-20 11:45] LABS: VITAMIN D, 25-HYDROXY 25.8 ng/mL (30-100)
== END | disposition home or self-care (01) ==
LOC: LAB 09:24
PROVIDERS: ATTEND Internal Medicine
DX: I50.22 Chronic systolic (congestive) heart failure (principal); E55.9 Vitamin D deficiency, unspecified; D64.9 Anemia, unspecified

== ENCOUNTER 2024-09-16 15:25 | Emergency (ER) | payer MEDICARE, OTHER ==
[~2024-09-16] VITALS: Ht 162.5 cm; Wt 70.3 kg
[~2024-09-16 15:25] MED LIST changes: +ATORVASTATIN CA40 M1 PO; +CIPROFLOXACIN500 M4 PO; +DIOVAN40 MG PO; +IMDUR SA30 MG PO; +JARDIANCE10 MG PO; +Vitamin D (1,000 UNI PO; +XARE15TA PO
[2024-09-16 16:31] LABS: BASO # 0.0 10*3/uL (0.0-0.1); BASO % 0.4 % (0.0-1.0); EOS # 0.2 10*3/uL (0.0-0.4); EOS % 1.9 % (1.0-4.0); MEAN CELL VOLUME 82.1 fl (81.0-99.0); MEAN CORPUSCULAR HGB 25.9 pg (27.0-31.0); MEAN PLATELET VOLUME 11.0 fl (9.6-12.3); MONO # 0.6 10*3/uL (0.1-1.0); MONO % 7.5 % (3.0-9.0); NEUT # 5.5 10*3/uL (2.3-7.9); NEUT % 68.9 % (47.0-73.0); NUCLEATED RED BLOOD CELL 0.0 % (0.0-0.0); NUCLEATED RED BLOOD CELL 0.0 10*3/uL (0.0-0.0); PLATELET COUNT AUTOMATED 307 10*3/uL (130-400); RED CELL DISTRI WIDTH 15.0 % (0-14.5)
[2024-09-16 16:54] LABS: BUN 22.0 mg/dl (9-23)
[2024-09-16] MEDS ORDERED: Iodixanol 320 100 ML VIAL IV ONE (17:30)
[2024-09-16] MEDS ORDERED: SODIUM CHLORIDE 0.9% 100 ML BAG IV ONE (17:30)
[2024-09-16] MEDS ORDERED: Iodixanol 320 100 ML VIAL ONE (17:57)
[2024-09-16] MEDS ORDERED: SODIUM CHLORIDE 0.9% 100 ML IV ONE (17:57)
[2024-09-16] MEDS ORDERED: ANTIVERT25 M2 PO (21:40)
== END 2024-09-16 21:50 | disposition home or self-care (01) ==
LOC: ED 15:25
PROVIDERS: Nurse Practitioner Family
DX: R42 Dizziness and giddiness (principal); N18.30 Chronic kidney disease, stage 3 unspecified; Z79.899 Other long term (current) drug therapy; Z98.51 Tubal ligation status; Z98.890 Other specified postprocedural states

== ENCOUNTER 2024-11-16 10:29 | Emergency (ER) | payer MEDICARE, OTHER ==
[~2024-11-16] VITALS: Ht 162.5 cm; Wt 63.5 kg
[~2024-11-16 10:29] MED LIST changes: +ANTIVERT25 M2 PO
[2024-11-16] MEDS ORDERED: SEPTDS PO (11:21)
[2024-11-16] MEDS ORDERED: Sulfamethoxazole/Trimethopri 1 TAB TAB PO ONE (11:25)
== END 2024-11-16 11:31 | disposition home or self-care (01) ==
LOC: ED 10:29
DX: L02.11 Cutaneous abscess of neck (principal); I25.2 Old myocardial infarction; I48.0 Paroxysmal atrial fibrillation; I50.9 Heart failure, unspecified; N18.30 Chronic kidney disease, stage 3 unspecified; Z79.899 Other long term (current) drug therapy; Z86.73 Personal history of transient ischemic attack (TIA), and cerebral infarction without residual deficits; Z87.891 Personal history of nicotine dependence

== ENCOUNTER 2024-12-19 11:49 | Inpatient (IN) | payer MEDICARE, OTHER ==
[~2024-12-19] VITALS: Ht 162.5 cm; Wt 66.0 kg
[~2024-12-19 11:49] MED LIST changes: +SEPTDS PO
[2024-12-19 11:53] VITALS: BP 117/66
[2024-12-19] MEDS ORDERED: SODIUM CHLORIDE 0.9% 500 ML IV ONE (12:05)
[2024-12-19 12:30] LABS: BASO # 0.1 10*3/uL (0.0-0.1); BASO % 0.6 % (0.0-1.0); EOS # 0.1 10*3/uL (0.0-0.4); EOS % 1.1 % (1.0-4.0); MEAN CELL VOLUME 85.5 fl (81.0-99.0); MEAN CORPUSCULAR HGB 26.2 pg (27.0-31.0); MEAN PLATELET VOLUME 11.1 fl (9.6-12.3); MONO # 0.6 10*3/uL (0.1-1.0); MONO % 6.4 % (3.0-9.0); NEUT # 6.8 10*3/uL (2.3-7.9); NEUT % 75.6 % (47.0-73.0); NUCLEATED RED BLOOD CELL 0.0 % (0.0-0.0); NUCLEATED RED BLOOD CELL 0.0 10*3/uL (0.0-0.0); PLATELET COUNT AUTOMATED 316 10*3/uL (130-400); RED CELL DISTRI WIDTH 14.8 % (0-14.5)
[2024-12-19 12:58] LABS: BUN 15.0 mg/dl (9-23); CPK 28.0 U/L (34-171)
[2024-12-19] MEDS ORDERED: ACETAMINOPHEN 325 MG TAB PO PRN (16:00)
[2024-12-19] MEDS ORDERED: Ondansetron Hydrochloride 4 MG/2 ML VIAL IV PRN (16:00)
[2024-12-19] MEDS ORDERED: BISACODYL 5 MG TAB PO PRN (16:00)
[2024-12-19] MEDS ORDERED: SODIUM CHLORIDE 0.9% 1,000 ML IV ONE (16:10)
[2024-12-19 16:40] VITALS: BP 126/53
[2024-12-19 20:00] VITALS: BP 131/63
[2024-12-19] MEDS ORDERED: CARVEDILOL 6.25 MG TAB PO SCH (22:00)
[2024-12-19] MEDS ORDERED: ISOSORBIDE MONONITRATE 30 MG TAB PO SCH (22:20)
[2024-12-19 23:44] LABS: BILIRUBIN Negative (Negative); BLOOD Negative (Negative); CLARITY Turbid (Clear); COLOR Yellow (Yellow); KETONE Trace (Negative); LEUKO ESTERASE 2+ (Negative); NITRITE Negative (Negative); PH 6.0 (4.5-8.0); SPECIFIC GRAVITY 1.025 (1.001-1.030); UROBILINOGEN 1.0 E.U./dl (0.0-1.0)
[2024-12-19 23:50] LABS: URINE AMPHETAMINES Negative (1000ng/ml); URINE BARBITURATES Negative (200ng/ml); URINE BENZODIAZEPINES Negative (200ng/ml); URINE CANNABINOIDS (THC) Negative (50ng/ml); URINE COCAINE Negative (300ng/ml); URINE METHADONE Negative (300ng/ml); URINE OPIATES Negative (300ng/ml); URINE PHENCYCLIDINE Negative (25ng/ml)
[2024-12-19 23:59] LABS: BACTERIA 2+; EPITHELIAL CELLS TNTC; WBC 21-30 wbc/hpf (0-5)
[2024-12-20] VITALS: BP 144/65
[2024-12-20 06:12] LABS: BASO # 0.0 10*3/uL (0.0-0.1); BASO % 0.5 % (0.0-1.0); EOS # 0.2 10*3/uL (0.0-0.4); EOS % 2.0 % (1.0-4.0); MEAN CELL VOLUME 85.1 fl (81.0-99.0); MEAN CORPUSCULAR HGB 26.4 pg (27.0-31.0); MEAN PLATELET VOLUME 11.3 fl (9.6-12.3); MONO # 0.8 10*3/uL (0.1-1.0); MONO % 10.3 % (3.0-9.0); NEUT # 4.9 10*3/uL (2.3-7.9); NEUT % 64.4 % (47.0-73.0); NUCLEATED RED BLOOD CELL 0.0 % (0.0-0.0); NUCLEATED RED BLOOD CELL 0.0 10*3/uL (0.0-0.0); PLATELET COUNT AUTOMATED 267 10*3/uL (130-400); RED CELL DISTRI WIDTH 15.0 % (0-14.5)
[2024-12-20 06:26] LABS: ACT PARTIAL THROMBO TIME 26.7 SECONDS (20.0-32.1)
[2024-12-20 06:33] LABS: BUN 23.0 mg/dl (9-23); FREE T4 1.09 ng/dl (0.89-1.76); LDL CHOLESTEROL 67.0 mg/dL (9-159); SGPT/ALT 10.0 U/L (5-49)
[2024-12-20 06:53] LABS: VITAMIN D, 25-HYDROXY 21.7 ng/mL (30-100)
[2024-12-20 08:00] VITALS: BP 150/99
[2024-12-20] MEDS ORDERED: BUMETANIDE 1 MG TAB PO SCH (10:00)
[2024-12-20] MEDS ORDERED: Vitamin D 1,000 IU TAB (25 MCG) PO SCH (10:00)
[2024-12-20] MEDS ORDERED: EMPAGLIFLOZIN 10 MG TABLET PO SCH (10:00)
[2024-12-20] MEDS ORDERED: ISOSORBIDE MONONITRATE 30 MG TAB PO SCH (10:00)
[2024-12-20] MEDS ORDERED: CYANOCOBALAMIN 100 MCG TAB PO SCH (10:00)
[2024-12-20] MEDS ORDERED: RIVAROXABAN 15 MG TAB PO SCH (10:00)
[2024-12-20 11:45] VITALS: BP 153/88
[2024-12-20 16:00] VITALS: BP 100/71
[2024-12-20 20:00] VITALS: BP 126/64
[2024-12-21] VITALS: BP 155/68
[2024-12-21 05:58] LABS: BUN 25.0 mg/dl (9-23)
[2024-12-21 06:18] LABS: BASO # 0.1 10*3/uL (0.0-0.1); BASO % 0.7 % (0.0-1.0); EOS # 0.2 10*3/uL (0.0-0.4); EOS % 3.1 % (1.0-4.0); MEAN CELL VOLUME 85.5 fl (81.0-99.0); MEAN CORPUSCULAR HGB 26.5 pg (27.0-31.0); MEAN PLATELET VOLUME 12.1 fl (9.6-12.3); MONO # 0.7 10*3/uL (0.1-1.0); MONO % 10.3 % (3.0-9.0); NEUT # 4.4 10*3/uL (2.3-7.9); NEUT % 62.5 % (47.0-73.0); NUCLEATED RED BLOOD CELL 0.0 % (0.0-0.0); NUCLEATED RED BLOOD CELL 0.0 10*3/uL (0.0-0.0); PLATELET COUNT AUTOMATED 235 10*3/uL (130-400); RED CELL DISTRI WIDTH 15.2 % (0-14.5)
[2024-12-21 08:00] VITALS: BP 131/58
[2024-12-21] MEDS ORDERED: SPIRONOLACTONE 25 MG TAB PO SCH (10:00)
[2024-12-21 11:26] VITALS: BP 150/56
[2024-12-21] MEDS ORDERED: OMNICEF300 MG PO (12:42)
[2024-12-21] MEDS ORDERED: ALDACTONE25 MG PO (12:42)
[2024-12-21] MEDS ORDERED: JARDIANCE10 MG PO (12:42)
[2024-12-21] MEDS ORDERED: VITAMIN B-12100 MCG PO (12:42)
[2024-12-21] MEDS ORDERED: COREG3.125 MG PO (12:42)
[2024-12-21 16:00] VITALS: BP 145/65
[2024-12-21 20:00] VITALS: BP 117/50; BP 151/62
[2024-12-21] MEDS ORDERED: CARVEDILOL 3.125 MG TAB PO SCH (22:00)
[2024-12-22] VITALS: BP 98/79
[2024-12-22 07:22] LABS: BASO # 0.0 10*3/uL (0.0-0.1); BASO % 0.5 % (0.0-1.0); EOS # 0.2 10*3/uL (0.0-0.4); EOS % 2.3 % (1.0-4.0); MEAN CELL VOLUME 84.4 fl (81.0-99.0); MEAN CORPUSCULAR HGB 26.3 pg (27.0-31.0); MEAN PLATELET VOLUME 10.8 fl (9.6-12.3); MONO # 0.7 10*3/uL (0.1-1.0); MONO % 8.5 % (3.0-9.0); NEUT # 5.8 10*3/uL (2.3-7.9); NEUT % 67.6 % (47.0-73.0); NUCLEATED RED BLOOD CELL 0.0 % (0.0-0.0); NUCLEATED RED BLOOD CELL 0.0 10*3/uL (0.0-0.0); PLATELET COUNT AUTOMATED 270 10*3/uL (130-400); RED CELL DISTRI WIDTH 15.1 % (0-14.5)
[2024-12-22 07:41] LABS: BUN 27.0 mg/dl (9-23)
[2024-12-22 08:00] VITALS: BP 121/49
[2024-12-22] MEDS ORDERED: AMOXICILLIN500 M3 PO (11:43)
[2024-12-22 11:51] VITALS: BP 151/86
[2024-12-22 16:00] VITALS: BP 129/73
== END 2024-12-22 19:06 | disposition home or self-care (01) | DRG 641 ==
LOC: ED 11:49 → EDHOLD 15:06 → 4E 15:06
PROVIDERS: Emergency Medicine; Student in an Organized Health Care Education/Training Program; ADMIT Student in an Organized Health Care Education/Training Program; ATTEND Student in an Organized Health Care Education/Training Program
DX: E86.0 Dehydration (principal); I50.22 Chronic systolic (congestive) heart failure; N39.0 Urinary tract infection, site not specified; I31.39 Other pericardial effusion (noninflammatory); G90.9 Disorder of the autonomic nervous system, unspecified; R54 Age-related physical debility; R73.9 Hyperglycemia, unspecified; I48.0 Paroxysmal atrial fibrillation; I25.10 Atherosclerotic heart disease of native coronary artery without angina pectoris; K57.30 Diverticulosis of large intestine without perforation or abscess without bleeding; E55.9 Vitamin D deficiency, unspecified; R00.1 Bradycardia, unspecified; D64.9 Anemia, unspecified; N28.89 Other specified disorders of kidney and ureter; I11.0 Hypertensive heart disease with heart failure; I44.7 Left bundle-branch block, unspecified; Z79.899 Other long term (current) drug therapy; Z79.01 Long term (current) use of anticoagulants; Z79.2 Long term (current) use of antibiotics; Z90.12 Acquired absence of left breast and nipple; I25.2 Old myocardial infarction; Z87.891 Personal history of nicotine dependence; Z80.3 Family history of malignant neoplasm of breast; Z82.5 Family history of asthma and other chronic lower respiratory diseases; Z86.73 Personal history of transient ischemic attack (TIA), and cerebral infarction without residual deficits